=== PATIENT | male | born 1965 | race Caucasian/White ===

== ENCOUNTER 2022-10-23 21:54 | Inpatient (IN) | payer BC, OTHER ==
[2022-10-23] MEDS ORDERED: SODIUM CHLORIDE 0.9% 1,000 ML IV STA (22:20)
[2022-10-23] MEDS ORDERED: ASPIRIN 81 MG PO STA (22:20)
[2022-10-23] MEDS ORDERED: NITROGLYCERIN SL TABS 0.4 MG TAB SUBLINGUAL STA (22:20)
[2022-10-23 22:35] LABS: Basophils % (A) 0 %; Eosinophils # (A) 0.1 k/uL (0-0.7); Eosinophils % (A) 1 %; HCT 43.4 % (39.0-53.0); HGB 14.6 gm/dL (13.0-17.5); Lymphocytes # (A) 1.4 k/uL (1.0-4.8); Lymphocytes % (A) 17 %; MCH 31.7 pg (25.0-35.0); MCHC 33.7 g/dL (31.0-37.0); Mean Platelet Volume 7.3; Monocytes # (A) 0.4 k/uL (0-1.0); Monocytes % (A) 5 %; Neutrophils # (A) 6.2 k/uL (1.3-7.7); Neutrophils % (A) 76 %; Platelet Count 211 k/uL (150-450); RBC 4.62 m/uL (4.30-5.90); RDW 12.4 % (11.5-15.5); WBC 8.2 k/uL (3.8-10.6)
[2022-10-23] MEDS ORDERED: ONDANSETRON 4 MG/2 ML VIAL IVP STA (22:37)
--- NOTE | 2022-10-23 22:40 | ED ---
General Adult HPI - General Chief complaint: Chest Pain Stated complaint: Heart Burn Time Seen by Provider: 10/23/22 22:03 Source: patient, RN notes reviewed, old records reviewed Mode of arrival: ambulatory Limitations: no limitations - History of Present Illness Initial comments: Patient is a 57-year-old male with past medical history remarkable for h yperlipidemia on a statin who presents emergency Department complaining of chest pain. Describes the pain as a acid reflux type pain. Originally had a 2 days ago after eating and described as a burning sensation substernally with radiation up towards his throat. States it was relieved with antacids. States this kind of been there over the last 2 days but not bad until this evening when he suddenly experienced at about 5 PM prior to eating. Hasn't gone away with medications. Denies any nausea or vomiting. Denies any diaphoretic episodes. States the pain is the same a burning sensation that radiates up substernally into the back of his throat. Attempted Tums and other antacids at home with no relief. Denies any shortness of breath. History of tobacco use. Patient's father had an AK around his age and his 50s. He presents over concern for possible cardiac issue with current complaints. - Related Data Home Medications Medication Instructions Recorded Confirmed [place]-3 Fatty Acids/Fish Oil [Fish 1 each PO DAILY 10/16/15 10/18/15 Oil 1,000 mg Softgel] Simvastatin [Zocor] 20 mg PO DAILY 10/16/15 10/18/15 Allergies Allergy/AdvReac Type Severity Reaction Status Date / Time No Known Allergies Allergy Verified 10/18/15 09:16 Review of Systems ROS Statement: Those systems with pertinent positive or pertinent negative responses have been documented in the HPI. Review of Systems: CONST: Denies fever EYES: Denies blurry vision ENT: Denies nasal congestion C/V: Endorses chest pain RESP: Denies shortness of breath GI: Denies abdominal pain : Denies dysuria SKIN: Denies rash. MSK: Denies joint pain. NEURO: Denies headache ROS Other: All systems not noted in ROS Statement are negative. Past Medical History Past Medical History: Hyperlipidemia History of Any Multi-Drug Resistant Organisms: None Reported Past Surgical History: No Surgical Hx Reported Past Anesthesia/Blood Transfusion Reactions: No Reported Reaction Additional Past Anesthesia/Blood Transfusion Reaction / Comment(s): FIRST ANESTHETIC Past Psychological History: No Psychological Hx Reported Smoking Status: Current every day smoker Past Alcohol Use History: Occasional, Rare Past Drug Use History: None Reported - Past Family History Mother Family Medical History: No Reported History General Exam - General Exam Comments Initial Comments: General: Appears in no acute distress. HEAD: Normal with no signs of head trauma. EYES: PERRLA, EOMI, conjunctiva normal, no discharge. ENT: Hearing grossly intact, normal oropharynx. RESPIRATORY: Clear breath sounds bilaterally. No wheezes, rales, or rhonchi. C/V: Regular rate and rhythm. S1 and S2 auscultated, no edema, peripheral pulses 2+ and intact throughout ABD: Abd is soft, nontender, nondistended EXT: Normal range of motion, no obvious deformity SKIN: No rashes or lesions observed on exposed skin. NEURO: Alert and oriented 4. Limitations: no limitations Course Vital Signs 10/23/22 10/23/22 10/23/22 22:00 22:10 22:20 Temperature 98.0 F Pulse Rate 90 86 82 Respiratory 18 18 Rate Blood Pressure 150/92 168/92 152/98 O2 Sat by Pulse 98 99 99 Oximetry 10/23/22 10/23/22 10/23/22 22:30 22:33 22:36 Temperature Pulse Rate 73 70 62 Respiratory 17 18 Rate Blood Pressure 116/77 94/67 94/49 O2 Sat by Pulse 97 97 Oximetry 10/23/22 10/23/22 10/23/22 22:44 23:00 23:30 Temperature Pulse Rate 74 73 76 Respiratory 18 17 Rate Blood Pressure 115/76 115/76 115/79 O2 Sat by Pulse 100 100 98 Oximetry 10/24/22 10/24/22 10/24/22 00:00 00:17 01:00 Temperature Pulse Rate 70 83 Respiratory 18 Rate Blood Pressure 133/63 134/79 126/78 O2 Sat by Pulse 99 98 98 Oximetry 10/24/22 10/24/22 10/24/22 02:00 02:15 02:30 Temperature Pulse Rate 84 64 62 Respiratory 18 Rate Blood Pressure 126/51 114/80 129/84 O2 Sat by Pulse 95 98 97 Oximetry 10/24/22 10/24/22 10/24/22 02:45 03:00 03:15 Temperature Pulse Rate 66 57 L 61 Respiratory Rate Blood Pressure 137/91 130/79 128/87 O2 Sat by Pulse 96 98 96 Oximetry 10/24/22 10/24/22 03:30 03:45 Temperature Pulse Rate 55 L 62 Respiratory Rate Blood Pressure 119/78 127/77 O2 Sat by Pulse 96 96 Oximetry Medical Decision Making - Medical Decision Making Was pt. sent in by a medical professional or institution (, [facility], [facility], urgent care, hospital, or custodial...) When possible be specific @ -No Did you speak to anyone other than the patient for history (EMS, parent, family, police, friend...)? What history was obtained from this source @ -No Did you review nursing and triage notes (agree or disagree)? Why? @ -I reviewed and agree with nursing and triage notes Were old charts reviewed (outside hosp., previous admission, EMS record, old EKG, old radiological studies, urgent care reports/EKG's, custodial records)? Report findings @ -No old charts were reviewed Differential Diagnosis (chest pain, altered mental status, abdominal pain women, abdominal pain men, vaginal bleeding, weakness, fever, dyspnea, syncope, headache, dizziness, GI bleed, back pain, seizure, CVA, palpatations, mental health, musculoskeletal)? @ -Differential Chest Pain: Stable Angina, Unstable Angina, STEMI, NSTEMI Aortic Dissection, Pneumothorax, Musculoskeletal, Esophageal Spasm GERD, Cholecystitis, Pancreatitis, Zoster, this is not meant to be an all-inclusive list. EKG interpreted by me (3pts min.). @ -As above X-rays interpreted by me (1pt min.). @ -Chest x-ray reveals no obvious acute cardio pulmonary process. CT interpreted by me (1pt min.). @ -None done U/S interpreted by me (1pt. min.). @ -None done What testing was considered but not performed or refused? (CT, X-rays, U/S, labs)? Why? @ -None What meds were considered but not given or refused? Why? @ -None Did you discuss the management of the patient with other professionals (professionals i.e. [facility] Villareal, [facility] HELPER, lab, RT, psych nurse, social work manager, childrens club attendant, teacher, correction officer supervisor, watch caser)? Give summary @ -Discussed the case with Dr. Ramírez who accepted the admission and requested that I speak with Dr. Lord of cardiology who is on-call. Discussed this case with Dr. Lord who is in agreement with the management and requested a repeat troponin now and to be contacted if it does substantially increase or if symptoms return. I did discuss the repeat troponin as well at 5, and we will add on a nitro drip at this time at Dr. Lord's request. Was smoking cessation discussed for >3mins.? @ -No Was critical care preformed (if so, how long)? @ -yes, 35 min Were there social determinants of health that impacted care today? How? (Homelessness, low income, unemployed, alcoholism, drug addiction, transportation, low edu. Level, literacy, decrease access to med. care, intermediate, rehab)? @ -No Was there de-escalation of care discussed even if they declined (Discuss DNR or withdrawal of care, Hospice)? DNR status @ -No What co-morbidities impacted this encounter? (DM, HTN, Smoking, COPD, CAD, Cancer, CVA, ARF, Chemo, Hep., AIDS, mental health diagnosis, sleep apnea, morbid obesity)? @ -None Was patient admitted / discharged? Hospital course, mention meds given and route, prescriptions, significant lab abnormalities, going to OR and other pertinent info. @ -Based on the patient's presentation and physical exam, presents with acid reflux type chest pain but it has been persistent and resistant to acid reflux medications at home. Presents for further evaluation of a concern for cardiac disease. We'll obtain cardiac primary labs. Patient was given aspirin. He'll receive a 1 L fluid bolus as well as nitroglycerin tablets to see if it affects his pain. He was in agreement this plan. Vital signs within acceptable limits. EKG showed nonspecific findings. Repeat EKG showed no worsening dynamic changes. Chest x-ray revealed no obvious acute cardiopulmonary process. Labs are remarkable for an initial elevated troponin of 1.68. Remainder the labs are within acceptable limits. At this time patient was placed on a heparin drip. He already received aspirin. I discussed results with him and he will be admitted to the hospital for cardiology evaluation and monitoring. He was in agreement with this plan. Patient is asymptomatic at this time. Nitro tablets did nothing for his pain, the pain did resolve with his Maalox. Echo was ordered. I discussed the patient with the admitting physician Dr. Ramírez who accepted the patient. Requested that I speak with cardiology regarding the patient. Cardiology was consulted and I also spoke with Dr. Lord over the phone. He was in agreement with the plan. Requested I obtain a troponin at the 2 hour jackelin which is now. Order was placed. He'll be notified with any significant increases or change in patient's status. He otherwise was in agreement with the plan for admission, as well as therapy. Repeat troponin was found be elevated at 5. Repeat EKG showed no acute changes. Patient was very mild chest pain at this time at 1 or 2 out of 10. It is similar to the previous pain that he describes as a burning sensation substernally, worse when he was laying down flat. I called back Dr. Lord who recommended a nitro drip at 5 g. Recommended continued treatment. I updated the patient. He was in agreement with the plan. Undiagnosed new problem with uncertain prognosis? @ -No Drug Therapy requiring intensive monitoring for toxicity (Heparin, Nitro, Insulin, Cardizem)? @ -Heparin, nitro Were any procedures done? @ -No Diagnosis/symptom? @ -NSTEMI Acute, or Chronic, or Acute on Chronic? @ -Acute Uncomplicated (without systemic symptoms) or Complicated (systemic symptoms)? @ -Complicated Side effects of treatment? @ -none Exacerbation, Progression, or Severe Exacerbation] @ -no. Poses a threat to life or bodily function? @ -yes - Lab Data Result diagrams: 10/23/22 22:20 10/23/22 22:20 Lab Results 10/23/22 10/23/22 10/23/22 Range/Units 22:20 22:20 22:20 WBC 8.2 (3.8-10.6) k/uL RBC 4.62 (4.30-5.90) m/uL Hgb 14.6 (13.0-17.5) gm/dL Hct 43.4 (39.0-53.0) % MCV 94.0 (80.0-100.0) fL MCH 31.7 (25.0-35.0) pg MCHC 33.7 (31.0-37.0) g/dL RDW 12.4 (11.5-15.5) % Plt Count 211 (150-450) k/uL MPV 7.3 Neutrophils % 76 % Lymphocytes % 17 % Monocytes % 5 % Eosinophils % 1 % Basophils % 0 % Neutrophils # 6.2 (1.3-7.7) k/uL Lymphocytes # 1.4 (1.0-4.8) k/uL Monocytes # 0.4 (0-1.0) k/uL Eosinophils # 0.1 (0-0.7) k/uL Basophils # 0.0 (0-0.2) k/uL PT 9.6 (9.0-12.0) sec INR 0.9 (<1.2) APTT 24.7 (22.0-30.0) sec Sodium 139 (137-145) mmol/L Potassium 3.8 (3.5-5.1) mmol/L Chloride 103 (98-107) mmol/L Carbon Dioxide 26 (22-30) mmol/L Anion Gap 10 mmol/L BUN 22 H (9-20) mg/dL Creatinine 0.94 (0.66-1.25) mg/dL Est GFR (CKD-EPI)AfAm >90 (>60 ml/min/1.73 sqM) Est GFR (CKD-EPI)NonAf >90 (>60 ml/min/1.73 sqM) Glucose 146 H (74-99) mg/dL Calcium 9.9 (8.4-10.2) mg/dL Magnesium 1.9 (1.6-2.3) mg/dL Total Bilirubin 0.4 (0.2-1.3) mg/dL AST 65 H (17-59) U/L ALT 36 (4-49) U/L Alkaline Phosphatase 72 (38-126) U/L Troponin I (0.000-0.034) ng/mL Total Protein 7.6 (6.3-8.2) g/dL Albumin 4.5 (3.5-5.0) g/dL Lipase 67 (23-300) U/L 10/23/22 Range/Units 22:20 WBC (3.8-10.6) k/uL RBC (4.30-5.90) m/uL Hgb (13.0-17.5) gm/dL Hct (39.0-53.0) % MCV (80.0-100.0) fL MCH (25.0-35.0) pg MCHC (31.0-37.0) g/dL RDW (11.5-15.5) % Plt Count (150-450) k/uL MPV Neutrophils % % Lymphocytes % % Monocytes % % Eosinophils % % Basophils % % Neutrophils # (1.3-7.7) k/uL Lymphocytes # (1.0-4.8) k/uL Monocytes # (0-1.0) k/uL Eosinophils # (0-0.7) k/uL Basophils # (0-0.2) k/uL PT (9.0-12.0) sec INR (<1.2) APTT (22.0-30.0) sec Sodium (137-145) mmol/L Potassium (3.5-5.1) mmol/L Chloride (98-107) mmol/L Carbon Dioxide (22-30) mmol/L Anion Gap mmol/L BUN (9-20) mg/dL Creatinine (0.66-1.25) mg/dL Est GFR (CKD-EPI)AfAm (>60 ml/min/1.73 sqM) Est GFR (CKD-EPI)NonAf (>60 ml/min/1.73 sqM) Glucose (74-99) mg/dL Calcium (8.4-10.2) mg/dL Magnesium (1.6-2.3) mg/dL Total Bilirubin (0.2-1.3) mg/dL AST (17-59) U/L ALT (4-49) U/L Alkaline Phosphatase (38-126) U/L Troponin I 1.680 H* (0.000-0.034) ng/mL Total Protein (6.3-8.2) g/dL Albumin (3.5-5.0) g/dL Lipase (23-300) U/L - EKG Data -: EKG Interpreted by Me EKG Comments: 12-lead Electrocardiogram Interpretation Note EKG was reviewed and interpreted by myself. 12-lead ECG performed at 2206 is interpreted by me as revealing normal sinus rhythm at a rate of 86 beats per minute. [place] is normal. NV interval is 169 ms, QRS duration is 94 ms, QTc is [address] segment depression in lead II, as well as possibly in the lateral precordial leads with no T-wave inversions or ST segment elevations.. R wave progression across the precordium was satisfactory. By my interpretation this EKG is non-diagnostic for acute ischemia. 12-lead Electrocardiogram Interpretation Note EKG was reviewed and interpreted by myself. 12-lead ECG performed at 2303 is interpreted by me as revealing normal sinus rhythm at a rate of 71 beats per minute. [place] is normal. NV interval is 176 ms, QRS duration is 108 ms, QTc is 386 ms.. There were no acute ST or T wave abnormalities to suggest myocardial ischemia or injury. R wave progression across the precordium was satisfactory. By my interpretation this EKG is non-diagnostic for acute ischemia. The slight ST segment depression in lead II has improved. 12-lead Electrocardiogram Interpretation Note EKG was reviewed and interpreted by myself. 12-lead ECG performed at 0222 is interpreted by me as revealing sinus bradycardia at a rate of 57 beats per minute. [place] is normal. Possible slight T-wave inversion in aVL that is isolated. There were no ST or T wave abnormalities to suggest myocardial ischemia or injury. R wave progression across the precordium was satisfactory. By my interpretation this EKG is non-diagnostic for acute ischemia. No significant change. Disposition Clinical Impression: Acute non-ST elevation myocardial infarction (NSTEMI) Disposition: ADMITTED IP TO THIS HOSP Condition: Stable Time of Disposition: 23:56
[2022-10-23 22:44] LABS: INR 0.9 (<1.2); Partial Thromboplastin Time 24.7 sec (22.0-30.0); Prothrombin Time 9.6 sec (9.0-12.0)
[2022-10-23 23:01] LABS: ALT 36 U/L (4-49); AST 65 U/L (17-59); African American GFR (CKD) >90 (>60 ml/min/1.73 sqM); Albumin 4.5 g/dL (3.5-5.0); Alkaline Phosphatase 72 U/L (38-126); Anion Gap 10 mmol/L; Blood Urea Nitrogen 22 mg/dL (9-20); Calcium 9.9 mg/dL (8.4-10.2); Carbon Dioxide 26 mmol/L (22-30); Chloride 103 mmol/L (98-107); Glucose 146 mg/dL (74-99); Lipase 67 U/L (23-300); Magnesium 1.9 mg/dL (1.6-2.3); Non-African American GFR(CKD) >90 (>60 ml/min/1.73 sqM); Potassium 3.8 mmol/L (3.5-5.1); Sodium 139 mmol/L (137-145); Total Bilirubin 0.4 mg/dL (0.2-1.3); Total Protein 7.6 g/dL (6.3-8.2)
--- NOTE | 2022-10-23 23:08 | XR ---
EXAM: XR Chest, 2 Views CLINICAL HISTORY: Chest Pain TECHNIQUE: Frontal and lateral views of the chest. COMPARISON: No relevant prior studies available. FINDINGS: Lungs: No focal consolidation. The pulmonary vasculature demonstrates no significant radiographic abnormality. Pleural space: Unremarkable. No pneumothorax. No large pleural effusion. Heart: Unremarkable. No cardiomegaly. Mediastinum: Unremarkable. No significant abnormality identified. The trachea is midline. Bones/joints: Unremarkable. IMPRESSION: No focal consolidation or acute cardiopulmonary process identified.
[2022-10-23] MEDS ORDERED: MAG HYDROX/AL HYDROX/SIMETH 30 ML, HYOSCYAMINE ELIXIR 10 ML, LIDOCAINE 2% GLYDO JELLY 1... PO STA ×3 (23:20)
[2022-10-23] MEDS ORDERED: KETOROLAC 15 MG/ML 1 ML VIAL IVP STA (23:20)
[2022-10-23] MEDS ORDERED: HEPARIN SODIUM 1,000 UN/ML (10ML VL) IV ONE (23:41)
[2022-10-23] MEDS ORDERED: HEPARIN SODIUM 1,000 UN/ML (10ML VL) IV PRN (23:41)
[2022-10-23] MEDS ORDERED: HEPARIN SOD,PORK IN 0.45% NACL 25,000 UNIT in 0.45% NACL 1 250ML.BAG IV SCH (23:45)
[2022-10-24] MEDS ORDERED: NALOXONE 0.4 MG/ML 1 ML VIAL IV PRN (00:43)
[2022-10-24] MEDS ORDERED: ONDANSETRON 4 MG/2 ML VIAL IVP PRN (00:43)
[2022-10-24] MEDS ORDERED: NITROGLYCERIN-D5W PMX 50 MG in DEXTROSE/WATER 1 250ML.BAG IV SCH (02:45)
[2022-10-24] MEDS: SODIUM CHLORIDE 0.9% 1,000 ML IV SCH ×3 (03:20→23:34)
[2022-10-24 06:45] LABS: Basophils % (A) 0 %; Eosinophils # (A) 0.1 k/uL (0-0.7); Eosinophils % (A) 1 %; HCT 36.3 % (39.0-53.0); HGB 12.5 gm/dL (13.0-17.5); Lymphocytes # (A) 1.5 k/uL (1.0-4.8); Lymphocytes % (A) 17 %; MCH 32.3 pg (25.0-35.0); MCHC 34.5 g/dL (31.0-37.0); MCV 93.7 fL (80.0-100.0); Mean Platelet Volume 7.7; Monocytes # (A) 0.5 k/uL (0-1.0); Monocytes % (A) 6 %; Neutrophils # (A) 6.6 k/uL (1.3-7.7); Neutrophils % (A) 74 %; Platelet Count 192 k/uL (150-450); RBC 3.87 m/uL (4.30-5.90); RDW 12.4 % (11.5-15.5); WBC 8.9 k/uL (3.8-10.6)
[2022-10-24 06:55] LABS: Partial Thromboplastin Time 48.4 sec (22.0-30.0); Prothrombin Time 10.2 sec (9.0-12.0)
[2022-10-24] MEDS ORDERED: ACETAMINOPHEN TAB 325 MG TAB PO PRN (07:41)
--- NOTE | 2022-10-24 08:30 | P.HPIM ---
History of Present Illness H&P Date: 10/24/22 Chief Complaint: Chest pain This is a 57-year-old white male well-known to the practice. He has a known history of hyperlipidemia. He reports that last Wednesday began experiencing "heartburn". He said it happened right after he ate. It was midsternal and after this he said he had a sore throat too. He said the symptoms Coming and going until yesterday it became bad enough and with no relief for antiacid, he came emergency room seen and evaluated. He was found to have elevated troponin. EKG essentially normal. He smokes cigarettes daily, he has a family history of myocardial infarction in his father in his 50s. Review of Systems All systems: negative Past Medical History Past Medical History: Hyperlipidemia History of Any Multi-Drug Resistant Organisms: None Reported Past Surgical History: No Surgical Hx Reported Past Anesthesia/Blood Transfusion Reactions: No Reported Reaction Additional Past Anesthesia/Blood Transfusion Reaction / Comment(s): FIRST ANESTHETIC Past Psychological History: No Psychological Hx Reported Smoking Status: Current every day smoker Past Alcohol Use History: Occasional, Rare Past Drug Use History: None Reported - Past Family History Mother Family Medical History: No Reported History Medications and Allergies Home Medications Medication Instructions Recorded Confirmed Type [place]-3 Fatty Acids/Fish Oil [Fish 1 each PO DAILY 10/16/15 10/18/15 History Oil 1,000 mg Softgel] Simvastatin [Zocor] 20 mg PO DAILY 10/16/15 10/18/15 History Allergies Allergy/AdvReac Type Severity Reaction Status Date / Time No Known Allergies Allergy Verified 10/18/15 09:16 Physical Exam Vitals: Vital Signs Temp Pulse Resp BP Pulse Ox 10/24/22 07:27 85 16 112/75 98 10/24/22 05:45 67 116/77 95 10/24/22 05:30 123/78 97 10/24/22 05:15 65 110/67 96 10/24/22 05:00 60 114/68 99 10/24/22 04:45 60 125/77 97 10/24/22 04:30 89 114/58 96 10/24/22 04:15 62 105/60 97 10/24/22 04:00 69 124/78 95 10/24/22 03:45 62 127/77 96 10/24/22 03:30 55 L 119/78 96 10/24/22 03:15 61 128/87 96 10/24/22 03:00 57 L 130/79 98 10/24/22 02:45 66 137/91 96 10/24/22 02:30 62 129/84 97 10/24/22 02:15 64 114/80 98 10/24/22 02:00 84 18 126/51 95 10/24/22 01:00 126/78 98 10/24/22 00:17 83 134/79 98 10/24/22 00:00 70 18 133/63 99 10/23/22 23:30 76 17 115/79 98 10/23/22 23:00 73 115/76 100 10/23/22 22:44 74 18 115/76 100 10/23/22 22:36 62 94/49 10/23/22 22:33 70 18 94/67 97 10/23/22 22:30 73 17 116/77 97 10/23/22 22:20 82 18 152/98 99 10/23/22 22:10 86 168/92 99 10/23/22 22:00 98.0 F 90 18 150/92 98 Intake and Output 10/23/22 10/24/22 10/24/22 22:59 06:59 14:59 Other: Weight 78.018 kg GENERAL: Well-appearing, well-nourished and in no acute distress. HEAD: Atraumatic, normocephalic. EYES: Pupils equal round and reactive to light, extraocular movements intact, sclera anicteric, conjunctiva are normal. ENT:nares patent, oropharynx clear without exudates. Moist mucous membranes. NECK: Normal range of motion, supple without lymphadenopathy or JVD, no thyromegaly LUNGS: Breath sounds clear to auscultation bilaterally and equal. No wheezes rales or rhonchi. HEART: Regular rate and rhythm without murmurs, rubs or gallops.S1S2 Normal ABDOMEN: Soft, nontender, normoactive bowel sounds. No guarding, no rebound. No masses appreciated. EXTREMITIES: Normal range of motion, no pitting or edema. No clubbing or cyanosis. NEUROLOGICAL: Cranial nerves II through XII grossly intact. Normal speech, normal gait. PSYCH: Normal mood, normal affect. SKIN: Warm, Dry, normal turgor, no rashes or lesions noted. Results CBC & Chem 7: 10/24/22 06:20 10/23/22 22:20 Labs: Abnormal Lab Results - Last 24 Hours (Table) 10/23/22 10/23/22 10/24/22 Range/Units 22:20 22:20 01:11 RBC (4.30-5.90) m/uL Hgb (13.0-17.5) gm/dL Hct (39.0-53.0) % APTT (22.0-30.0) sec BUN 22 H (9-20) mg/dL Glucose 146 H (74-99) mg/dL AST 65 H (17-59) U/L Troponin I 1.680 H* 5.050 H* (0.000-0.034) ng/mL 10/24/22 10/24/22 10/24/22 Range/Units 06:20 06:20 06:20 RBC 3.87 L (4.30-5.90) m/uL Hgb 12.5 L (13.0-17.5) gm/dL Hct 36.3 L (39.0-53.0) % APTT 48.4 H (22.0-30.0) sec BUN (9-20) mg/dL Glucose (74-99) mg/dL AST (17-59) U/L Troponin I 12.100 H* (0.000-0.034) ng/mL Chest x-ray: report reviewed Thrombosis Risk Factor Assmnt - DVT/VTE Prophylaxis DVT/VTE Prophylaxis: Pharmacologic Prophylaxis ordered (Patient on heparin drip) Assessment and Plan (1) Elevated troponin I measurement Current Visit: Yes Status: Acute Code(s): R77.8 - OTHER SPECIFIED ABNORMALITIES OF PLASMA PROTEINS SNOMED Code(s): 115831161 (2) Chest pain Current Visit: Yes Status: Acute Code(s): R07.9 - CHEST PAIN, UNSPECIFIED SNOMED Code(s): 10494663 (3) Mixed hyperlipidemia Current Visit: Yes Status: Acute Code(s): E78.2 - MIXED HYPERLIPIDEMIA SNOMED Code(s): 922980685 (4) Smoker Current Visit: Yes Status: Acute Code(s): F17.200 - NICOTINE DEPENDENCE, UNSPECIFIED, UNCOMPLICATED SNOMED Code(s): 30923049 (5) Acute non-ST elevation myocardial infarction (NSTEMI) Current Visit: Yes Status: Acute Code(s): I21.4 - NON-ST ELEVATION (NSTEMI) MYOCARDIAL INFARCTION SNOMED Code(s): 373341041 Plan: Patient is ambulating taken to the Loan Consultant now by cardiology. We will wait on his evaluation. He'll need education regarding smoking. Reevaluate next 24 hours
[2022-10-24] MEDS: ATORVASTATIN 80 MG TAB PO SCH ×2 (08:52→20:18)
[2022-10-24] MEDS: ASPIRIN 81 MG PO SCH (08:52)
--- NOTE | 2022-10-24 09:13 | HP ---
HISTORY AND PHYSICAL The patient presented with recurrent midsternal burning discomfort since Wednesday. He has abnormal cardiac enzymes. His first 12-lead EKG showed ST depression in the inferior leads, high lateral leads, and ST elevation in V1 consistent with inferior posterolateral ischemia. His cardiac enzymes are rising. He continues to have mild discomfort despite being on nitroglycerin and heparin. Discussed with the patient, discussed with Dr. Ramírez, and discussed with Dr. Lord, likely non-Q-wave myocardial infarction. We will proceed with coronary angiography. Patient normally takes 20 mg of statin. He is on heparin and nitroglycerin. I have started him on aspirin and 80 mg of atorvastatin and he will be headed to the analytical laboratory technician shortly. Full consult will follow. MMODL / IJN: [id number] /
[2022-10-24] MEDS ORDERED: HEPARIN SODIUM 1,000 UN/ML (10ML VL) ONE (09:16)
[2022-10-24] MEDS ORDERED: fentaNYL (PF) 50 MCG/ML 2 ML AMP ONE (09:17)
[2022-10-24] MEDS ORDERED: IV FLUID CONTINUATION 1,000 ML IV ONE (09:20)
[2022-10-24] MEDS ORDERED: fentaNYL (PF) 50 MCG/ML 2 ML AMP IV ONE (09:24)
[2022-10-24] MEDS ORDERED: MIDAZOLAM 2 MG/2 ML VIAL IV ONE (09:24)
[2022-10-24] MEDS ORDERED: LIDOCAINE 1% INJ 10MG/ML (20 ML MDV) SQ ONE (09:26)
[2022-10-24] MEDS ORDERED: VERAPAMIL SYRINGE (5 MG/10 ML) INTRAARTER ONE (09:27)
[2022-10-24] MEDS ORDERED: HEPARIN SODIUM 1,000 UN/ML (10ML VL) IV ONE (09:33)
[2022-10-24] MEDS ORDERED: PRASUGREL 10 MG TAB ONE (09:40)
[2022-10-24] MEDS ORDERED: PRASUGREL 10 MG TAB PO ONE (09:47)
[2022-10-24] MEDS ORDERED: NITROGLYCERIN 1000MCG/10ML SYRINGE INTRACORON ONE (09:48)
[2022-10-24] MEDS ORDERED: TIROFIBAN BOLUS 12.5MG/250 ML BAG IV ONE (09:54)
[2022-10-24] MEDS ORDERED: TIROFIBAN 12.5MG-250ML NS 250 ML IV ONE (09:55)
--- NOTE | 2022-10-24 10:14 | P.PRCINT ---
Percutaneous Coronary Int. - Percutaneous Coronary Intervention Percutaneous Coronary Intervention: PROCEDURES PERFORMED: Left heart catheterization, bilateral coronary angiography, Penumbra aspiration thrombectomy OM1, PCI OM1 with 4.0 x 15mm Xience TAMELA INDICATION: NSTEMI CONSENT:I have discussed the risks, benefits and alternative therapies for the above-mentioned procedure and for both sedation/analgesia as well as necessary blood product administration, if indicated, as they pertain to this patient. The patient has indicated understanding and acceptance of the risks and procedures discussed. PROCEDURE: After the risks, benefits and alternatives of the above mentioned procedure explained in detail with the patient, informed consent was obtained. Patient was taken to the catheterization lab and prepped and draped in usual fashion. 1% lidocaine was used to anesthetize the right radial artery. A 6-F rench sheath was placed in the right radial artery using modified Seldinger technique. Left coronary angiography was performed with a 5-[place]uvian JL 3.5 catheter and right coronary angiography was performed with a 5-[place]uvian JR5 catheter in various views. A 5-[place]uv[place] FR5 catheter was inserted into the left ventricle and pressure measurements were obtained. The decision was made to perform PCI of the OM1. A 6-[place] CLS 3.0 guide was used engage the left main. A 0.014 BMW wire was advanced in the distal OM1. Predilation was performed with a 3.25 x 12 mm balloon. Aspiration thrombectomy was performed with a Penumbra catheter. There was still large thrombus burden and stenting was performed with a 4.0 x 15 mm Xience TAMELA to the proximal OM1. Final angiograms were performed. Preintervention there was 100% stenosis with PRITI 0 flow and postintervention there was 0% stenosis with PRITI 3 flow. The right radial sheath was removed and a TR band was placed with hemostasis achieved. The patient tolerated the procedure well. Patient was transported back to the post catheterization holding area in stable condition. Conscious Sedation: Patient was monitored under the direct supervision of myself for conscious sedation using Versed and fentanyl for a total duration of 33 minutes HEMODYNAMICS: Aorta 126/72 LV: 118/2, LVEDP 29 SELECTIVE CORONARY ARTERIOGRAPHY: LEFT MAIN: The left main is a large caliber vessel which bifurcates into the LAD and circumflex. There is no significant stenosis. LEFT ANTERIOR DESCENDING CORONARY ARTERY: LAD is a large caliber vessel which wraps around to the apex. There is proximal 20% stenosis and then mid tandem 50% then 80% mid LAD stenosis and otherwise mild luminal irregularities. Diagonal 1 appears to be moderate caliber with a 70% stenosis. LEFT CIRCUMFLEX CORONARY ARTERY: Left circumflex is a large caliber vessel with 100% stenosis of the proximal OM1 branch and otherwise relatively normal. RIGHT CORONARY ARTERY: The right coronary artery is a moderate caliber vessel which gives off a PDA and PLV branch and is the dominant vessel. There is a mid RCA 30% stenosis. FINAL IMPRESSION: 1. CAD as described above including 100% proximal OM1, 80% mid LAD, diagonal 170% and 30% mid RCA stenosis. 2. S/p PCI OM1 with 4.0 x 15mm Xience TAMELA 3. Elevated left sided filling pressures PLAN: 1. Aggressive risk factor modification per most recent ACC/AHA guidelines. 2. Continue dual antiplatelets with aspirin and Effient for 12 months 3. Staged PCI of LAD and possibly diagonal 1 branch.
[2022-10-24] MEDS ORDERED: IOPAMIDOL-370 200ML BTL INJ ONE (10:17)
[2022-10-24 10:25] LABS: Glucose,Whole Blood 117 mg/dL (70-110)
[2022-10-24] MEDS ORDERED: ZOLPIDEM 5 MG TAB PO PRN (10:37)
[2022-10-24] MEDS ORDERED: MAG HYDROX/AL HYDROX/SIMETH 30 ML CUP PO PRN (10:37)
[2022-10-24] MEDS ORDERED: NITROGLYCERIN SL TABS 0.4 MG TAB SUBLINGUAL PRN (10:37)
[2022-10-24] MEDS ORDERED: ATROPINE SULFATE 0.1 MG/ML 10ML SYRINGE IV PRN (10:37)
[2022-10-24] MEDS ORDERED: RX INFO: IV CONTRAST WAS GIVEN 1 EACH MISC MISCELLANE PRN (10:37)
[2022-10-24 14:26] VITALS: BMI 23.3
[2022-10-25] MEDS: ASPIRIN 81 MG PO SCH (08:50)
[2022-10-25] MEDS: PRASUGREL 10 MG TAB PO SCH (08:50)
[2022-10-25] MEDS: SODIUM CHLORIDE 0.9% 1,000 ML IV SCH (08:52)
[2022-10-25] MEDS: METOPROLOL SUCCINATE (ER) 25 MG TAB.ER.24H PO SCH (09:42)
[2022-10-25 09:53] LABS: Basophils % (A) 0 %; Eosinophils # (A) 0.1 k/uL (0-0.7); Eosinophils % (A) 1 %; HCT 33.7 % (39.0-53.0); HGB 11.3 gm/dL (13.0-17.5); Lymphocytes % (A) 15 %; MCH 32.2 pg (25.0-35.0); MCHC 33.5 g/dL (31.0-37.0); MCV 95.9 fL (80.0-100.0); Mean Platelet Volume 7.7; Monocytes # (A) 0.5 k/uL (0-1.0); Monocytes % (A) 7 %; Neutrophils # (A) 5.2 k/uL (1.3-7.7); Neutrophils % (A) 76 %; Platelet Count 167 k/uL (150-450); RBC 3.51 m/uL (4.30-5.90); RDW 12.2 % (11.5-15.5); WBC 6.9 k/uL (3.8-10.6)
[2022-10-25 10:16] LABS: African American GFR (CKD) >90 (>60 ml/min/1.73 sqM); Anion Gap 4 mmol/L; Blood Urea Nitrogen 14 mg/dL (9-20); Calcium 8.1 mg/dL (8.4-10.2); Carbon Dioxide 27 mmol/L (22-30); Chloride 105 mmol/L (98-107); Glucose 122 mg/dL (74-99); Non-African American GFR(CKD) >90 (>60 ml/min/1.73 sqM); Potassium 3.8 mmol/L (3.5-5.1); Sodium 136 mmol/L (137-145)
--- NOTE | 2022-10-25 12:00 | P.PN ---
Subjective Patient was admitted with a non-ST elevated myocardial infarction yesterday. He was taken to the [facility] in the LED was dented. Today he feels much better. Cardiology are planning on another stent in two weeks possibly. He denies any chest pain or shortness of breath at this time. Objective - Vital Signs Vital signs: Vital Signs Temp 98.5 F 10/25/22 08:47 Pulse 85 10/25/22 10:25 Resp 18 10/25/22 10:25 BP 104/66 10/25/22 08:47 Pulse Ox 98 10/25/22 08:47 FiO2 21 10/25/22 08:45 Intake & Output 10/24/22 10/25/22 10/25/22 18:59 06:59 18:59 Intake Total 950 740 118 Balance 950 740 118 Weight 78.018 kg Intake: IV 250 Intake, IV Titration 400 200 Amount Sodium Chloride 0.9% 1, 400 200 000 ml @ 100 mls/hr IV . Q10H [facility] Rx#:[id number] Oral 300 540 118 Other: Voiding Method Toilet Toilet # Voids 1 1 - Exam GENERAL: Well-appearing, well-nourished and in no acute distress. NECK: Normal range of motion, supple without lymphadenopathy or JVD, no thyromegaly LUNGS: Breath sounds clear to auscultation bilaterally and equal. No wheezes rales or rhonchi. HEART: Regular rate and rhythm without murmurs, rubs or gallops.S1S2 Normal ABDOMEN: Soft, nontender, normoactive bowel sounds. No guarding, no rebound. No masses appreciated. EXTREMITIES: Normal range of motion, no pitting or edema. No clubbing or cyanosis. NEUROLOGICAL: Cranial nerves II through XII grossly intact. Normal speech, normal gait. PSYCH: Normal mood, normal affect. SKIN: Warm, Dry, normal turgor, no rashes or lesions noted. - Labs CBC & Chem 7: 10/25/22 09:05 10/25/22 09:05 Labs: Abnormal Lab Results - Last 24 Hours (Table) 10/25/22 10/25/22 Range/Units 09:05 09:05 RBC 3.51 L (4.30-5.90) m/uL Hgb 11.3 L (13.0-17.5) gm/dL Hct 33.7 L (39.0-53.0) % Sodium 136 L (137-145) mmol/L Glucose 122 H (74-99) mg/dL Calcium 8.1 L (8.4-10.2) mg/dL Assessment and Plan (1) Acute non-ST elevation myocardial infarction (NSTEMI) Current Visit: Yes Status: Acute Code(s): I21.4 - NON-ST ELEVATION (NSTEMI) MYOCARDIAL INFARCTION SNOMED Code(s): 732431297 (2) Elevated troponin I measurement Current Visit: Yes Status: Acute Code(s): R77.8 - OTHER SPECIFIED ABNORMALITIES OF PLASMA PROTEINS SNOMED Code(s): 678560688 (3) Chest pain Current Visit: Yes Status: Acute Code(s): R07.9 - CHEST PAIN, UNSPECIFIED SNOMED Code(s): 07026719 (4) Mixed hyperlipidemia Current Visit: Yes Status: Acute Code(s): E78.2 - MIXED HYPERLIPIDEMIA SNOMED Code(s): 824009071 (5) Smoker Current Visit: Yes Status: Acute Code(s): F17.200 - NICOTINE DEPENDENCE, UNSPECIFIED, UNCOMPLICATED SNOMED Code(s): 00069868 (6) Coronary artery disease Current Visit: Yes Status: Acute Code(s): I25.10 - ATHSCL HEART DISEASE OF [place] CORONARY ARTERY W/O ANG PCTRS SNOMED Code(s): 75011590 Plan: Smoking cessation discussed with patient again. Cardiology notes reviewed with aggressive risk factor modification, who continue to be monitored for the next 24 hours, wait on further cardiology recommendations.. Reevaluate next 24 hours
--- NOTE | 2022-10-25 13:27 | P.PN ---
Subjective Progress Note Date: 10/25/22 The patient is a 57-year-old male who presented to the hospital with recurrent midsternal epigastric discomfort. Twelve-lead EKG showed ST depression in the inferior leads, high lateral leads, and ST elevation in V1 consistent with inferior posterior-lateral ischemia. Positive cardiac enzymes, therefore the patient was taken for coronary angiogram. He was found to have a 100% occlusion in the proximal OM1, 80% in the mid LAD, 70% in the diagonal, and 30% mid RCA stenosis. He underwent stenting of the OM1. The patient states he did well overnight. No reoccurrence in his epigastric discomfort. No difficulty breathing. No dizziness when up ambulating to the bathroom. GENERAL: Well-appearing, well-nourished and in no acute distress. NECK: Supple without JVD or thyromegaly. LUNGS: Breath sounds clear to auscultation bilaterally. Respiration equal and unlabored. No wheezes, rales or rhonchi. HEART: Regular rate and rhythm without murmurs, rubs or gallops. S1 and S2 heard. EXTREMITIES: Normal range of motion, no edema. No clubbing or cyanosis. Peripheral pulses intact and strong. Right radial site is healed VITALS: Blood pressure 104/66, pulse 85, afebrile, SpO2 98% on room air TELEMETRY: Sinus rhythm IMPRESSION: ST elevated myocardial infarction Multivessel coronary artery disease with stenting of the OM1 Staged intervention on mid LAD and diagonal lesions at a later date Current smoker History of hyperlipidemia PLAN: Start metoprolol succinate 12-1/2 mg daily Continue dual antiplatelet therapy Recommend patient ambulate around the unit to assess for angina Echocardiogram and Doppler study to be completed Further recommendations will be based upon clinical course I am dictating on behalf of Dr Lucas Kingsley's history/physical and assessment/plan. Objective - Vital Signs Vital signs: Vital Signs Temp 98.5 F 10/25/22 08:47 Pulse 85 10/25/22 12:17 Resp 18 10/25/22 12:17 BP 111/76 10/25/22 12:17 Pulse Ox 100 10/25/22 12:17 FiO2 21 10/25/22 08:45 Intake & Output 10/24/22 10/25/22 10/25/22 18:59 06:59 18:59 Intake Total 950 740 236 Balance 950 740 236 Weight 78.018 kg Intake: IV 250 Intake, IV Titration 400 200 Amount Sodium Chloride 0.9% 1, 400 200 000 ml @ 100 mls/hr IV . Q10H [facility] Rx#:[id number] Oral 300 540 236 Other: Voiding Method Toilet Toilet # Voids 1 1 - Labs CBC & Chem 7: 10/25/22 09:05 10/25/22 09:05 Labs: Abnormal Lab Results - Last 24 Hours (Table) 10/25/22 10/25/22 Range/Units 09:05 09:05 RBC 3.51 L (4.30-5.90) m/uL Hgb 11.3 L (13.0-17.5) gm/dL Hct 33.7 L (39.0-53.0) % Sodium 136 L (137-145) mmol/L Glucose 122 H (74-99) mg/dL Calcium 8.1 L (8.4-10.2) mg/dL
--- NOTE | 2022-10-25 16:03 | P.CRDCN ---
History of Present Illness History of present illness: This is Dr. Kingsley dictating an H/P on this patient The patient was interviewed and examined in the ER in the setting of an acute ST elevation [place] IMPRESSION / ASSESSMENT: Non-Q wave myocardial infarction Current smoker Dyslipidemia PLAN: Proceed with coronary angiography Start antihypertensive therapy, smoking cessation, statins, aspirin, IV heparin continue HPI 57-year-old male patient with the current midsternal chest discomfort Twelve-lead EKG showed ST depressions in the inferior leads high lateral leads and ST elevation V1 consistent with an inferior posterior lateral [place] Cardiac enzymes are abnormal with a rising trend He is a current smoker History of dyslipidemia ROS: No fever chills or rigors, no cough, phlegm or expectoration, no nausea, vomiting or diarrhea, no hematuria, dysuria, no musculoskeletal complaints, no strokes or seizures, no skin lesions. EXAMINATION: 150/92 mmHg pulse rate in the 90s afebrile Breath sounds are clear no rhonchi no crackles Heart sounds S1 and S2 are normal Abdomen is soft nontender REVIEW OF LABS, ECG & MEDICAL DATA troponins were 1.68, 5.05 and 12.1 Electrolytes normal Renal function normal Past Medical History Past Medical History: Hyperlipidemia, Myocardial Infarction (non Q-wave), Osteoarthritis (OA) Additional Past Medical History / Comment(s): neck pain with tens treatment arthritis Last Myocardial Infarction Date:: 10/24/22 History of Any Multi-Drug Resistant Organisms: None Reported Past Surgical History: No Surgical Hx Reported Additional Past Surgical History / Comment(s): sinus sx Past Anesthesia/Blood Transfusion Reactions: No Reported Reaction Additional Past Anesthesia/Blood Transfusion Reaction / Comment(s): FIRST ANESTHETIC Past Psychological History: No Psychological Hx Reported Smoking Status: Current every day smoker Past Alcohol Use History: Occasional, Rare Additional Past Alcohol Use History / Comment(s): STARTED SMOKING AT AGE 14- SMOKES 1PPD Past Drug Use History: None Reported - Past Family History Mother Family Medical History: No Reported History Medications and Allergies Home Medications Medication Instructions Recorded Confirmed Type [place]-3 Fatty Acids/Fish Oil [Fish 1 cap PO DAILY 10/16/15 10/24/22 History Oil 1,000 mg Softgel] Simvastatin [Zocor] 20 mg PO DAILY 10/16/15 10/24/22 History Allergies Allergy/AdvReac Type Severity Reaction Status Date / Time No Known Allergies Allergy Verified 10/24/22 10:46 Physical Exam Vitals: Vital Signs Temp Pulse Resp BP Pulse Ox FiO2 10/25/22 15:56 86 18 101/63 97 10/25/22 14:32 18 10/25/22 12:17 85 18 111/76 100 10/25/22 10:25 85 18 10/25/22 08:47 98.5 F 85 18 104/66 98 10/25/22 08:45 93 L 21 10/25/22 03:37 85 16 94/58 93 L 10/24/22 23:56 84 16 93/50 94 L 10/24/22 20:00 97.6 F 92 16 90/53 96 Intake and Output 10/25/22 10/25/22 10/25/22 06:59 14:59 22:59 Intake Total 236 Balance 236 Intake: Oral 236 Other: Voiding Method Toilet Toilet # Voids 1 Results 10/25/22 09:05 10/25/22 09:05 CBC 10/25/22 Range/Units 09:05 WBC 6.9 (3.8-10.6) k/uL RBC 3.51 L (4.30-5.90) m/uL Hgb 11.3 L (13.0-17.5) gm/dL Hct 33.7 L (39.0-53.0) % Plt Count 167 (150-450) k/uL Comprehensive Metabolic Panel 10/25/22 Range/Units 09:05 Sodium 136 L (137-145) mmol/L Potassium 3.8 (3.5-5.1) mmol/L Chloride 105 (98-107) mmol/L Carbon Dioxide 27 (22-30) mmol/L BUN 14 (9-20) mg/dL Creatinine 0.94 (0.66-1.25) mg/dL Glucose 122 H (74-99) mg/dL Calcium 8.1 L (8.4-10.2) mg/dL Current Medications Generic Name Dose Route Start Last Admin Trade Name Freq PRN Reason Stop Dose Admin Acetaminophen 650 mg 10/24/22 07:41 10/24/22 11:33 Acetaminophen Tab 325 Mg Tab PO 650 mg Q6HR PRN Administration Fever and/ or Pain Al Hydroxide/Mg Hydroxide 30 ml 10/24/22 10:37 Mag Hydrox/Al Hydrox/Simeth 30 Ml Cup PO Q4HR PRN Heartburn Aspirin 81 mg 10/24/22 09:00 10/25/22 08:50 Aspirin 81 Mg PO 81 mg DAILY ODALYS Administration Atorvastatin Calcium 80 mg 10/24/22 08:22 10/24/22 20:18 Atorvastatin 80 Mg Tab PO 80 mg HS ODALYS Administration Atropine Sulfate 0.5 mg 10/24/22 10:37 Atropine Sulfate 0.1 Mg/Ml 10ml Syringe IV ONCE PRN Symptomatic Bradycardia Heparin Sodium (Porcine) 0 unit 10/23/22 23:41 Heparin Sodium 1,000 Un/Ml (10ml Vl) IV PER PROTOCOL PRN Low PTT Protocol Metoprolol Succinate 12.5 mg 10/25/22 09:45 10/25/22 09:42 Metoprolol Succinate (Er) 25 Mg Tab.Er.24h PO 12.5 mg DAILY ODALYS Administration Miscellaneous Information 1 each 10/24/22 10:37 Rx Info: Iv Contrast Was Given 1 Each Misc MISCELLANE 10/26/22 10:37 DAILY PRN Per Protocol Naloxone HCl 0.2 mg 10/24/22 00:43 Naloxone 0.4 Mg/Ml 1 Ml Vial IV Q2M PRN Opioid Reversal Nitroglycerin 0.4 mg 10/24/22 10:37 Nitroglycerin Sl Tabs 0.4 Mg Tab SUBLINGUAL Q5M PRN Chest Pain Ondansetron HCl 4 mg 10/24/22 00:43 Ondansetron 4 Mg/2 Ml Vial IVP Q8HR PRN Nausea And Vomiting Prasugrel 10 mg 10/25/22 09:00 10/25/22 08:50 Prasugrel 10 Mg Tab PO 10 mg DAILY ODALYS Administration Protocol Zolpidem Tartrate 5 mg 10/24/22 10:37 Zolpidem 5 Mg Tab PO HS PRN Insomnia Intake and Output 10/25/22 10/25/22 10/25/22 06:59 14:59 22:59 Intake Total 236 Balance 236 Intake: Oral 236 Other: Voiding Method Toilet Toilet # Voids 1 10/25/22 09:05 10/25/22 09:05
[2022-10-25 19:50] LABS: Chol/HDL Ratio 4.74 Ratio; LDL Cholesterol,Calculated 101.9 mg/dL (0.0-131.0)
[2022-10-25] MEDS: ATORVASTATIN 80 MG TAB PO SCH (20:10)
[2022-10-26 08:01] LABS: African American GFR (CKD) >90 (>60 ml/min/1.73 sqM); Anion Gap 6 mmol/L; Blood Urea Nitrogen 16 mg/dL (9-20); Calcium 8.5 mg/dL (8.4-10.2); Carbon Dioxide 26 mmol/L (22-30); Chloride 107 mmol/L (98-107); Glucose 98 mg/dL (74-99); Non-African American GFR(CKD) >90 (>60 ml/min/1.73 sqM); Potassium 4.3 mmol/L (3.5-5.1); Sodium 139 mmol/L (137-145)
[2022-10-26 08:25] VITALS: RESP 18; TEMP 98.6
[2022-10-26] MEDS: METOPROLOL SUCCINATE (ER) 25 MG TAB.ER.24H PO SCH (08:25)
[2022-10-26] MEDS: PRASUGREL 10 MG TAB PO SCH (08:26)
[2022-10-26] MEDS: ASPIRIN 81 MG PO SCH (08:26)
--- NOTE | 2022-10-26 10:54 | CA ---
Transthoracic Echo Report Name: Koko Cash Age: 57 Gender: M : 1965 Exam Date: 10/26/2022 08:55 Exam Location: [facility] Ht (in): 72 Wt (lb): 172 Ordering Physician: Kandi Villegas Attending/Referring Phys: [id number], [employer] Systems Architect Lynne Raya RDCS Procedure CPT: Indications: nstemi Cardiac Hx: Technical Quality: Fair Contrast 1: Total Dose (mL): Contrast 2: Total Dose (mL): MEASUREMENTS (Male / Female) Normal Values 2D ECHO LV Diastolic Diameter PLAX 4.1 cm 4.2 - 5.9 / 3.9 - 5.3 cm LV Systolic Diameter PLAX 2.5 cm IVS Diastolic Thickness 1.3 cm 0.6 - 1.0 / 0.6 - 0.9 cm LVPW Diastolic Thickness 1.4 cm 0.6 - 1.0 / 0.6 - 0.9 cm LV Relative Wall Thickness 0.7 RV Internal Dim ED PLAX 2.3 cm LA Volume 42.9 cm??? 18 - 58 / 22 - 52 cm??? M-MODE Aortic Root Diameter MM 2.9 cm LA Systolic Diameter MM 3.7 cm LA Ao Ratio MM 1.3 AV Cusp Separation MM 1.9 cm DOPPLER AV Peak Velocity 145.0 cm/s AV Peak Gradient 8.4 mmHg AV Mean Velocity 110.4 cm/s AV Mean Gradient 5.1 mmHg AV Velocity Time Integral 26.9 cm LVOT Peak Velocity 102.1 cm/s LVOT Peak Gradient 4.2 mmHg LVOT Velocity Time Integral 19.1 cm MV Area PHT 5.9 cm??? Mitral E Point Velocity 111.5 cm/s Mitral A Point Velocity 71.7 cm/s Mitral E to A Ratio 1.6 MV Deceleration Time 129.4 ms TR Peak Velocity 216.6 cm/s TR Peak Gradient 18.8 mmHg Right Ventricular Systolic Press 23.5 mmHg FINDINGS Left Ventricle Mildly increased left ventricular wall thickness. Left ventricular cavity size normal. Normal left ventricular systolic function with no obvious regional wall motion abnormalities. Left ventricular ejection fraction is estimated at 55-60 %. Right Ventricle Normal right ventricular size and function. Right ventricular systolic pressure within normal limits. Right Atrium Normal right atrial size. Left Atrium Normal left atrial size. Mitral Valve Structurally normal mitral valve. Mild mitral regurgitation. Posteriorly directed mitral regurgitation jet. Aortic Valve Trileaflet aortic valve. No aortic valve stenosis or regurgitation. Tricuspid Valve Structurally normal tricuspid valve. Mild tricuspid regurgitation. Pulmonic Valve Structurally normal pulmonic valve. Pericardium No pericardial effusion. Aorta Normal size aortic root and proximal ascending aorta. CONCLUSIONS Normal LV size and systolic function. Mild mitral regurgitation. No pericardial effusion Previewed by: Dr. Chaya Casiano MD (Electronically Signed) Final Date: 26 Oct 2022 10:53
--- NOTE | 2022-10-26 11:40 | P.PN ---
Subjective Progress Note Date: 10/26/22 HISTORY OF PRESENT ILLNESS: This is a 57-year-old male who underwent cardiac catheterization with stenting to the OM1 with Dr. Lord. Patient examined this morning at the bedside. He denies chest pain or pressure. He denies shortness of breath. He's been up ambulating to the bathroom in the hallway without difficulty. Vital signs are stable. Echocardiogram completed revealing ejection fraction 55-60%, mild MR. PHYSICAL EXAM: VITAL SIGNS: Reviewed. GENERAL: Well-developed in no acute distress. NECK: Supple. No JVD or thyromegaly LUNGS: Respirations even and unlabored. Lungs essentially clear to auscultation bilaterally. HEART: Regular rate and rhythm. S1 and S2 heard. EXTREMITIES: Normal range of motion. No clubbing or cyanosis. Peripheral pulses intact. No lower extremity edema ASSESSMENT: Acute coronary syndrome Coronary artery disease with stenting to OM1, patient to have staged PCI of LAD and possible diagonal in the future Hyperlipidemia Nicotine dependence PLAN: Continue current cardiac medications Continue dual antiplatelet therapy with aspirin and Effient Continue high-intensity statin Patient is stable for discharge home today from a cardiac standpoint He is to follow up post discharge with Dr. Kingsley Nurse practitioner note has been reviewed by physician. Signing provider agrees with the documented findings, assessment, and plan of care. Objective - Vital Signs Vital signs: Vital Signs Temp 98.6 F 10/26/22 08:23 Pulse 87 10/26/22 09:46 Resp 18 10/26/22 09:46 BP 103/67 10/26/22 08:23 Pulse Ox 98 10/26/22 08:28 FiO2 21 10/25/22 08:45 Intake & Output 10/25/22 10/26/22 10/26/22 18:59 06:59 18:59 Intake Total 976 540 118 Balance 976 540 118 Intake: Intake, IV Titration 200 Amount Sodium Chloride 0.9% 1, 200 000 ml @ 100 mls/hr IV . Q10H [facility] Rx#:[id number] Oral 776 540 118 Other: Voiding Method Toilet Toilet Toilet # Voids 2 1 - Labs CBC & Chem 7: 10/25/22 09:05 10/26/22 06:55 Labs: Abnormal Lab Results - Last 24 Hours (Table) 10/25/22 Range/Units 09:05 HDL Cholesterol 32.70 L (40.00-60.00) mg/dL
[2022-10-26 11:49] VITALS: BP 118/74; PULSE 85
--- NOTE | 2022-10-26 14:48 | P.DS ---
Providers Date of admission: 10/24/22 00:43 Expected date of discharge: 10/26/22 Attending physician: Morteza Ramírez Consults: 10/24/22 00:43 Consult Physician Routine Consulting Provider: Cardiology Roz Consult Reason/Comments: nstemi Do you want consulting provider notified?: Yes 10/24/22 10:37 Consult Physician Routine Consulting Provider: Cardiology Roz Consult Reason/Comments: Post Interventional Patient Do you want consulting provider notified?: Already Contacted Primary care physician: [facility] Hospital Course: Final Diagnoses: Acute STEMI status post cardiac catheterization with stenting to the OM1, staged PCI of LAD and possible diagonal in the future CAD, multivessel Hyperlipidemia Nicotine dependence, smoking sensation reinforced Hospital course: This is a pleasant 57-year-old gentleman admitted with acute STEMI, status post cardiac catheterization reporting 100% occlusion of the proximal OM1, 80% in the mid LAD, 70% in the diagonal and 30% mid RCA ; underwent stenting of the OM1, recommending staged intervention on mid LAD and diagonal lesions at later date. Tolerated procedure well. Ambulating, tolerating exertion well. Denies chest pain, palpitations, shortness of breath. Echocardiogram reporting EF 55-60%, mild mitral regurgitation. Cleared by cardiology for discharge. Patient will be discharged home today in a stable condition with guarded prognosis. The impression and plan of care has been dictated as directed. : I performed a history and examination of this patient, discussed the same with the dictator. I agree with the dictator's note ,documented as a scribe. Any additional findings or plans will be noted. Patient Condition at Discharge: Stable Plan - Discharge Summary New Discharge Prescriptions: New Aspirin 81 mg PO DAILY #90 tab Prasugrel [Effient] 10 mg PO DAILY #90 tab Atorvastatin [Lipitor] 80 mg PO HS #90 tab Nitroglycerin Sl Tabs [Nitrostat] 0.4 mg SUBLINGUAL Q5M PRN #100 tab PRN Reason: Chest Pain Metoprolol Succinate (ER) [Toprol XL] 12.5 mg PO DAILY #90 tab Continue [place]-3 Fatty Acids/Fish Oil [Fish Oil 1,000 mg Softgel] 1 cap PO DAILY Discontinued Simvastatin [Zocor] 20 mg PO DAILY Discharge Medication List [place]-3 Fatty Acids/Fish Oil [Fish Oil 1,000 mg Softgel] 1 cap PO DAILY 10/16/15 [History] Aspirin 81 mg PO DAILY #90 tab 10/26/22 [Rx] Atorvastatin [Lipitor] 80 mg PO HS #90 tab 10/26/22 [Rx] Metoprolol Succinate (ER) [Toprol XL] 12.5 mg PO DAILY #90 tab 10/26/22 [Rx] Nitroglycerin Sl Tabs [Nitrostat] 0.4 mg SUBLINGUAL Q5M PRN #100 tab 10/26/22 [Rx] Prasugrel [Effient] 10 mg PO DAILY #90 tab 10/26/22 [Rx] Follow up Appointment(s)/Referral(s): Lucas Kingsley MD [STAFF PHYSICIAN] - 11/03/22 9:15 am Brian Staples Jr, DO [Primary Care Provider] - 10/27/22 1:30 pm (with Lona Lomeli ) Patient Instructions/Handouts: Angina (DC), Heart Attack (DC)
[2022-10-26 16:05] LABS: Chol/HDL Ratio 4.32 Ratio; LDL Cholesterol,Calculated 104.3 mg/dL (0.0-131.0); VLDL Calculation 15.62 mg/dL (5.00-40.00)
== END 2022-10-26 16:04 | disposition home health service (06) | DRG 247 ==
LOC: EC 21:54 → 3SCARD 10-24 00:43 → 2SICU 10-24 10:08 → 3SCARD 10-24 14:45
PROVIDERS: ADMIT Family Medicine; ATTEND Family Medicine
PROC: B2111ZZ Fluoroscopy of Multiple Coronary Arteries using Low Osmolar Contrast (ICD-10-PCS; 2022-10-24)
PROC: B2151ZZ Fluoroscopy of Left Heart using Low Osmolar Contrast (ICD-10-PCS; 2022-10-24)
PROC: 027034Z Dilation of Coronary Artery, One Artery with Drug-eluting Intraluminal Device, Percutaneous Approach (ICD-10-PCS; principal; 2022-10-24 08:35)
PROC: 03CY3ZZ Extirpation of Matter from Upper Artery, Percutaneous Approach (ICD-10-PCS; 2022-10-24 08:35)
PROC: 4A023N7 Measurement of Cardiac Sampling and Pressure, Left Heart, Percutaneous Approach (ICD-10-PCS; 2022-10-24 08:35)
DX: I21.21 ST elevation (STEMI) myocardial infarction involving left circumflex coronary artery (principal); E78.2 Mixed hyperlipidemia; F17.210 Nicotine dependence, cigarettes, uncomplicated; M19.90 Unspecified osteoarthritis, unspecified site; M54.2 Cervicalgia; I25.119 Atherosclerotic heart disease of native coronary artery with unspecified angina pectoris; Z79.899 Other long term (current) drug therapy; Z82.49 Family history of ischemic heart disease and other diseases of the circulatory system
CPT/HCPCS: 36415; 71046; 80048; 80053; 80061; 83036; 83690; 83735; 84484; 85025; 85610; 85730; 92973; 93005; 93306; 93458; 94760; 96361; 96365; 96366; 96368; 96375; 99291

== ENCOUNTER 2022-11-19 11:52 | Day surgery (SDC) | payer BC ==
[2022-11-17 12:58] VITALS: BMI 23.3
[~2022-11-19 11:52] MED LIST: ALPRAZolam 0.25 MG TAB PO PRN; ALPRAZolam 0.5 MG TAB PO PRN; ASPIRIN 325 MG TAB PO STA; ATORVASTATIN 80 MG TAB PO STA; HEPARIN SODIUM,PORCINE 10,000 UNIT in SODIUM CHLORIDE 0.9% 1,000 ML IRRIGATION PRN; HEPARIN SODIUM,PORCINE 2,500 UNIT in SODIUM CHLORIDE 0.9% 250 ML IRRIGATION PRN; NITROGLYCERIN SL TABS 0.4 MG TAB SUBLINGUAL PRN; SODIUM CHLORIDE 0.9% 1,000 ML in EMPTY BAG 1 BAG IV SCH
[2022-11-19] MEDS ORDERED: SODIUM CHLORIDE 0.9% 1,000 ML IV ONE (12:07)
[2022-11-19 12:21] VITALS: RESP 16; TEMP 97.8
[2022-11-19] MEDS ORDERED: ASPIRIN 81 MG ONE (12:31)
[2022-11-19] MEDS ORDERED: VERAPAMIL 2.5 MG/ML 2 ML AMP ONE (13:41)
[2022-11-19] MEDS ORDERED: fentaNYL (PF) 50 MCG/ML 2 ML AMP ONE (13:45)
[2022-11-19] MEDS ORDERED: HEPARIN SODIUM 1,000 UN/ML (10ML VL) ONE (13:45)
[2022-11-19] MEDS: fentaNYL (PF) 50 MCG/ML 2 ML AMP IV ONE ×2 (14:05→14:17)
[2022-11-19] MEDS: MIDAZOLAM 2 MG/2 ML VIAL IV ONE ×2 (14:05→14:17)
[2022-11-19] MEDS ORDERED: LIDOCAINE 1% INJ 10MG/ML (5 ML VIAL-PF) SQ ONE (14:06)
[2022-11-19] MEDS ORDERED: VERAPAMIL SYRINGE (5 MG/10 ML) INTRAARTER ONE (14:08)
[2022-11-19] MEDS ORDERED: HEPARIN SODIUM 1,000 UN/ML (10ML VL) IV ONE (14:11)
[2022-11-19] MEDS ORDERED: NITROGLYCERIN 1000MCG/10ML SYRINGE INTRACORON ONE ×2 (14:24→14:41)
[2022-11-19] MEDS ORDERED: IOPAMIDOL-370 100ML BTL INJ ONE ×2 (14:36→14:42)
[2022-11-19] MEDS ORDERED: RX INFO: IV CONTRAST WAS GIVEN 1 EACH MISC MISCELLANE PRN (14:57)
[2022-11-19] MEDS ORDERED: ZOLPIDEM 5 MG TAB PO PRN (14:57)
[2022-11-19] MEDS ORDERED: MAG HYDROX/AL HYDROX/SIMETH 30 ML CUP PO PRN (14:57)
[2022-11-19] MEDS ORDERED: ATROPINE SULFATE 0.1 MG/ML 10ML SYRINGE IV PRN (14:57)
--- NOTE | 2022-11-19 15:08 | P.PRCINT ---
Percutaneous Coronary Int. - Percutaneous Coronary Intervention Percutaneous Coronary Intervention: PROCEDURES PERFORMED: Left coronary angiography, PCI diagonal 1 with a 2.25 x 12mm Xience TAMELA, PCI mid LAD with a 3.0 x 38mm Xience TAMELA, post dilated with a 4.0 NC balloon, IVUS LAD INDICATION: Staged PCI CONSENT:I have discussed the risks, benefits and alternative therapies for the above-mentioned procedure and for both sedation/analgesia as well as necessary blood product administration, if indicated, as they pertain to this patient. The patient has indicated understanding and acceptance of the risks and procedures discussed. PROCEDURE: After the risks, benefits and alternatives of the above mentioned pro cedure explained in detail with the patient, informed consent was obtained. Patient was taken to the catheterization lab and prepped and draped in usual fashion. 1% lidocaine was used to anesthetize the right radial artery. A 6- [place] sheath was placed in the right radial artery using modified Seldinger technique. The decision was made to perform PCI of the LAD and diagonal. Heparin was giv en. A 6Fr CLS 3.0 guide was used to engage the left main. A 0.014 BMW wire was placed into the distal LAD and a second 0.014 BMW wire was advanced into the diagonal branch. Predilation was performed of the diagonal branch as well as mid LAD with a 2.5 x 20 mm balloon. Next a year vascular ultrasound was performed which showed diffuse disease including the more distal 60-70% stenosis past the 90% LAD stenosis. Therefore the decision was made to cover the entire area. The degree of stenosis appeared right at the origin of the diagonal 1 branch. There was additional disease in the diagonal branch. Next a 2.25 x 12 mm Xience TAMELA was placed in the diagonal 1 branch. Next a 3.0 x 38 mm Xience TAMELA was placed in the mid LAD just distal to the diagonal 1 branch. Intravascular ultrasound showed preference vessel proximally 4.0 mm. The stent was postdilated with a 4.0 x 12 mm noncompliant balloon 2. Repeat ultrasound showed well-expanded stent with no dissection. The wire was pulled and final angiograms were performed. Preintervention there was 90% mid LAD and 90% diagonal 1 stenosis and PRITI-3 flow and postintervention there was less than 10% stenosis of the LAD and diagonal branch with PRITI 3 flow. The right radial sheath was removed and a TR band was placed with hemostasis achieved. The patient tolerated the procedure well. Patient was transported back to the post catheterization holding area in stable condition. Conscious Sedation: Patient was monitored under the direct supervision of myself for conscious sedation using Versed and fentanyl for a total duration of 49 minutes HEMODYNAMICS: Aorta: 129/72 SELECTIVE CORONARY ARTERIOGRAPHY: LEFT MAIN: The left main is a large caliber vessel which bifurcates into the LAD and circumflex. There is no significant stenosis. LEFT ANTERIOR DESCENDING CORONARY ARTERY: LAD is a large caliber vessel which wraps around to the apex. There is a tandem 60-70% mid, 90% mid and 60-70% mid to distal LAD stenosis. There is a more distal 50% stenosis. There is a proximal diagonal 1 90% stenosis. LEFT CIRCUMFLEX CORONARY ARTERY: Left circumflex is a moderate caliber vessel with a patent mid circumflex/OM1 stent and otherwise mild luminal irregularities. RIGHT CORONARY ARTERY: The right coronary artery was not imaged. FINAL IMPRESSION: 1. CAD as described above including 90% mid LAD and 90% diagonal 1 stenosis 2. S/p PCI diagonal 1 with a 2.25 x 12mm Xience TAMELA, PCI mid LAD with a 3.0 x 38mm Xience TAMELA, post dilated with a 4.0 NC balloon PLAN: 1. Aggressive risk factor modification per most recent ACC/AHA guidelines. 2. Continue dual antiplatelets with aspirin and Effient for 12 months.
[2022-11-19 17:52] VITALS: PULSE 72
[2022-11-19 18:47] VITALS: BP 116/59
[2022-11-20] MEDS ORDERED: PRASUGREL 10 MG TAB PO SCH (09:00)
[2022-11-20] MEDS ORDERED: METOPROLOL SUCCINATE (ER) 25 MG TAB.ER.24H PO SCH (09:00)
[2022-11-20] MEDS ORDERED: ATORVASTATIN 80 MG TAB PO SCH (09:00)
[2022-11-20] MEDS ORDERED: ASPIRIN 81 MG PO SCH (09:00)
== END 2022-11-19 18:52 | disposition home or self-care (01) ==
LOC: CATHCVL 11:52
PROVIDERS: ATTEND Internal Medicine
DX: I25.10 Atherosclerotic heart disease of native coronary artery without angina pectoris (principal); Z79.82 Long term (current) use of aspirin; Z79.899 Other long term (current) drug therapy
CPT/HCPCS: 92978; C9600; C9601; C1769 ×2; C1887; C1894; C1725 ×2; C1753; C1874 ×2; J2250; J2001; J3010; J1644; Q9967

== ENCOUNTER → 2024-11-10 | Outpatient (CLI) | payer BC ==
--- NOTE | 2024-11-10 09:46 | XR ---
EXAMINATION TYPE: XR pelvis AP view, XR 2 views Hip Bilateral Complete DATE OF EXAM: 11/10/2024 8:21 AM COMPARISON: None CLINICAL INDICATION: Male, 59 years old with history of M25.551 M25.552; PHH, pain FINDINGS: There is moderate degenerative change of both hips with axial joint space narrowing and prominent mar ginal spurring, right greater than left. Subchondral sclerosis along the acetabular loops. SI joints appear symmetric and intact as does the pubic symphysis. Small left-sided pelvic phleboliths. No acut e fracture, subluxation, dislocation. Moderate IMPRESSION (pelvis and bilateral hips): Moderate bilateral hip OA, right greater than left. No acute osseous abnormality seen. [facility], Workstation: [id number], 11/10/2024 9:44 AM
== END | disposition home or self-care (01) ==
LOC: RADXRMAIN 08:01
PROVIDERS: ATTEND Family Medicine
DX: M16.0 Bilateral primary osteoarthritis of hip (principal)
CPT/HCPCS: 72170; 73521